=== PATIENT | male | born 1995 | race Hispanic/Latino ===

== ENCOUNTER 2017-11-25 19:03 | Emergency (ER) | payer BC ==
[2017-11-25] MEDS ORDERED: ASPIRIN 81 MG CHEWABLE TABLET ONE (20:03)
[2017-11-25 20:13] LABS: Absolute Lymphocytes (CBC) 2.2 K/uL (0.7-4.9); Absolute Monocytes 0.7 K/uL (0.1-1.3); Absolute Neutrophil 5.2 K/uL (1.8-8.0); Basophils % 0.8 % (0-1.3); Eosinophils % 2.3 % (0-4.4); Hematocrit 43.2 % (39.6-49.0); Lymphocytes % 26.4 % (15.3-44.8); MCV 87.7 fL (80-100); MPV 7.4 fL (7.6-11.3); Monocytes % 8.9 % (3.3-12.3); RBC Red Blood Cell Count 4.93 M/uL (4.33-5.43)
--- NOTE | 2017-11-25 20:48 | RAD REPORT ---
EXAM DESCRIPTION: RAD - Chest Pa And Lat (2 Views) - 11/25/2017 8:28 pm CLINICAL HISTORY: CHEST PAIN Chest pain. COMPARISON: No comparisons FINDINGS: The lungs are clear. The heart is normal in size. No displaced fractures. IMPRESSION: No acute or concerning finding suspected.
[2017-11-25 21:04] LABS: ALT/SGPT 48 U/L (12-78); AST/SGOT 37 U/L (15-37); Albumin 4.2 g/dL (3.4-5.0); Alkaline Phosphatase 117 U/L (45-117); BUN Blood Urea Nitrogen 17 mg/dL (7-18); Bicarbonate 27 mmol/L (21-32); Bilirubin Total 0.5 mg/dL (0.2-1.0); Glucose Level 102 mg/dL (74-106); Potassium 3.7 mmol/L (3.5-5.1); Protein, Total 7.7 g/dL (6.4-8.2); Sodium Level 140 mmol/L (136-145); Troponin (Emerg Dept Use Only) < 0.02 ng/mL (0.0-0.045)
--- NOTE | 2017-11-25 21:04 | EDPHYS ---
Physician Documentation [facility] Name: Marko Quintero Age: 21 yrs Sex: Male : 1995 Arrival Date: 11/25/2017 Time: 19:07 Bed 23 Private MD: ED Physician Tony Cordoba HPI: 11/25 19:48 This 21 yrs old Male presents to ER via Ambulatory with complaints of Chest jb Pain, Rash. 19:48 The patient or guardian reports chest pain that is located primarily in the anterior jb chest wall, bilaterally. The pain does not radiate. Associated signs and symptoms: The patient has no apparent associated signs or symptoms. The chest pain is described as aching. Severity of pain: At its worst the pain was mild in the emergency department the pain is unchanged. The patient has not experienced similar symptoms in the past. Historical: - Allergies: 19:12 Peanut; aj - Home Meds: 19:12 None [Active]; aj - PMHx: 19:12 None; aj - PSHx: 19:12 None; aj - Immunization history:: Adult Immunizations up to date. - Social history:: Smoking status: Patient/guardian denies using tobacco. - Ebola Screening: : Patient negative for fever greater than or equal to 101.5 degrees Fahrenheit, and additional compatible Ebola Virus Disease symptoms Patient denies exposure to infectious person Patient denies travel to an Ebola-affected area in the 21 days before illness onset No symptoms or risks identified at this time. - Family history:: not pertinent. ROS: 19:48 Constitutional: Negative for fever, chills, and weight loss, Eyes: Negative for injury, jb pain, redness, and discharge, ENT: Negative for injury, pain, and discharge, Neck: Negative for injury, pain, and swelling, Respiratory: Negative for shortness of breath, cough, wheezing, and pleuritic chest pain, Abdomen/GI: Negative for abdominal pain, nausea, vomiting, diarrhea, and constipation, Back: Negative for injury and pain, : Negative for injury, bleeding, discharge, and swelling, MS/Extremity: Negative for injury and deformity, Skin: Negative for injury, rash, and discoloration, Neuro: Negative for headache, weakness, numbness, tingling, and seizure, Psych: Negative for depression, anxiety, suicide ideation, homicidal ideation, and hallucinations, Allergy/Immunology: Negative for hives, rash, and allergies, Endocrine: Negative for neck swelling, polydipsia, polyuria, polyphagia, and marked weight changes, Hematologic/Lymphatic: Negative for swollen nodes, abnormal bleeding, and unusual bruising. 19:48 Cardiovascular: Positive for chest pain. Exam: 19:48 Constitutional: This is a well developed, well nourished patient who is awake, alert, jb and in no acute distress. Head/Face: Normocephalic, atraumatic. Eyes: Pupils equal round and reactive to light, extra-ocular motions intact. Lids and lashes normal. Conjunctiva and sclera are non-icteric and not injected. Cornea within normal limits. Periorbital areas with no swelling, redness, or edema. ENT: Nares patent. No nasal discharge, no septal abnormalities noted. Tympanic membranes are normal and external auditory canals are clear. Oropharynx with no redness, swelling, or masses, exudates, or evidence of obstruction, uvula midline. Mucous membranes moist. Neck: Trachea midline, no thyromegaly or masses palpated, and no cervical lymphadenopathy. Supple, full range of motion without nuchal rigidity, or vertebral point tenderness. No Meningismus. Chest/axilla: Normal chest wall appearance and motion. Nontender with no deformity. No lesions are appreciated. Cardiovascular: Regular rate and rhythm with a normal S1 and S2. No gallops, murmurs, or rubs. Normal PMI, no JVD. No pulse deficits. Respiratory: Lungs have equal breath sounds bilaterally, clear to auscultation and percussion. No rales, rhonchi or wheezes noted. No increased work of breathing, no retractions or nasal flaring. Abdomen/GI: Soft, non-tender, with normal bowel sounds. No distension or tympany. No guarding or rebound. No evidence of tenderness throughout. Back: No spinal tenderness. No costovertebral tenderness. Full range of motion. Male : Normal genitalia with no discharge or lesions. Skin: Warm, dry with normal turgor. Normal color with no rashes, no lesions, and no evidence of cellulitis. MS/ Extremity: Pulses equal, no cyanosis. Neurovascular intact. Full, normal range of motion. Neuro: Awake and alert, GCS 15, oriented to person, place, time, and situation. Cranial nerves II-XII grossly intact. Motor strength 5/5 in all extremities. Sensory grossly intact. Cerebellar exam normal. Normal gait. Psych: Awake, alert, with orientation to person, place and time. Behavior, mood, and affect are within normal limits. Vital Signs: 19:11 BP 131 / 85; Pulse 91; Resp 17; Temp 97.6; Pulse Ox 98% on R/A; Weight 113.4 kg; Height aj 6 ft. 0 in. (182.88 cm); 20:02 BP 112 / 80; Pulse 87; Resp 18; Pulse Ox 96% ; Pain 4/10; fc 21:00 BP 117 / 79; Pulse 80; Resp 20; Temp 98.0(O); Pulse Ox 96% on R/A; Pain 2/10; fc 21:33 BP 114 / 75; Pulse 80; Resp 20; Temp 98.0(O); Pulse Ox 96% on R/A; Pain 02/10; fc 19:11 Body Mass Index 33.91 (113.40 kg, 182.88 cm) MDM: 19:20 Patient medically screened. [facility] 19:50 Data reviewed: vital signs, nurses notes, lab test result(s), EKG, radiologic studies, [facility] plain films. 11/25 19:48 Order name: CBC with Diff [facility] 11/25 19:48 Order name: Comprehensive Metabolic Panel; Complete Time: 21:05 [facility] 11/25 19:48 Order name: Chest Pa And Lat (2 Views) XRAY; Complete Time: 21:00 [facility] 11/25 19:48 Order name: D-Dimer; Complete Time: 21:00 [facility] 11/25 19:48 Order name: Troponin (emerg Dept Use Only); Complete Time: 21:05 [facility] 11/25 19:49 Order name: CBC with Automated Diff; Complete Time: 21:00 EDMS 11/25 19:48 Order name: EKG; Complete Time: 19:49 [facility] 11/25 19:48 Order name: EKG - Nurse/Tech; Complete Time: 19:55 [facility] Administered Medications: 19:58 Drug: Aspirin 81 mg Route: PO; 21:34 Follow up: Response: No adverse reaction; No change in condition Disposition: 11/25/17 21:03 Discharged to Home. Impression: Chest pain, unspecified. - Condition is Stable. - Discharge Instructions: Nonspecific Chest Pain, Chest Wall Pain, Chest Wall Pain, [id number], Nonspecific Chest Pain, [id number], Aspirin and Your Heart. - Medication Reconciliation Form, Thank You Letter, Antibiotic Education, Prescription Opioid Use form. - Follow up: Private Physician; When: 2 - 3 days; Reason: Recheck today's complaints, Continuance of care, Re-evaluation by your physician. Follow up: Twan Waldrop; When: 2 - 3 days; Reason: Recheck today's complaints, Re-evaluation by your physician. - Problem is new. - Symptoms have improved. Signatures: Dispatcher [employer] EDPatsy Mijares RN RN Tony Vargas MD MD cha Chretien, Felicia, RN RN fc Corrections: (The following items were deleted from the chart) 21:53 21:03 11/25/2017 21:03 Discharged to Home. Impression: Chest pain, unspecified. fc Condition is Stable. Discharge Instructions: Nonspecific Chest Pain, Chest Wall Pain, Chest Wall Pain, [id number], Nonspecific Chest Pain, [id number]-[id number], Aspirin and Your Heart. Forms are Medication Reconciliation Form, Thank You Letter, Antibiotic Education, Prescription Opioid Use. Follow up: Private Physician; When: 2 - 3 days; Reason: Recheck today's complaints, Continuance of care, Re-evaluation by your physician. Follow up: Twan Waldrop; When: 2 - 3 days; Reason: Recheck today's complaints, Re-evaluation by your physician. Problem is new. Symptoms have improved. jb
--- NOTE | 2017-11-25 21:04 | ER ---
Nurse's Notes [facility] Name: Marko Quintero Age: 21 yrs Sex: Male : 1995 Arrival Date: 11/25/2017 Time: 19:07 Bed 23 Private MD: Diagnosis: Chest pain, unspecified Presentation: 11/25 19:11 Presenting complaint: Patient states: Pain in sternum that is worse with heavy lifting. aj Transition of care: patient was not received from another setting of care. Onset of symptoms was November 25, 2017. Risk Assessment: Do you want to hurt yourself or someone else? Patient reports no desire to harm self or others. Initial Sepsis Screen: Does the patient meet any 2 criteria? No. Patient's initial sepsis screen is negative. Does the patient have a suspected source of infection? No. Patient's initial sepsis screen is negative. Care prior to arrival: None. 19:11 Method Of Arrival: Ambulatory aj 19:11 Acuity: DEVORA 3 aj Triage Assessment: 19:12 General: Appears in no apparent distress. comfortable, Behavior is calm, cooperative, aj appropriate for age. Pain: Complains of pain in mid-sternal area. Neuro: Level of Consciousness is awake, alert, obeys commands, Oriented to person, place, time, situation, Appropriate for age. Cardiovascular: Reports chest pain, Capillary refill < 3 seconds. Respiratory: Airway is patent Respiratory effort is even, unlabored, Respiratory pattern is regular, symmetrical. Derm: Skin is intact, is healthy with good turgor, Skin is pink, warm \T\ dry. normal. Musculoskeletal: Reports pain in mid-sternal area. Historical: - Allergies: 19:12 Peanut; aj - Home Meds: 19:12 None [Active]; aj - PMHx: 19:12 None; aj - PSHx: 19:12 None; aj - Immunization history:: Adult Immunizations up to date. - Social history:: Smoking status: Patient/guardian denies using tobacco. - Ebola Screening: : Patient negative for fever greater than or equal to 101.5 degrees Fahrenheit, and additional compatible Ebola Virus Disease symptoms Patient denies exposure to infectious person Patient denies travel to an Ebola-affected area in the 21 days before illness onset No symptoms or risks identified at this time. - Family history:: not pertinent. Screenin:15 Abuse screen: Denies threats or abuse. Nutritional screening: No deficits noted. fc Tuberculosis screening: No symptoms or risk factors identified. Fall Risk None identified. Assessment: 19:15 General: Appears uncomfortable, well groomed, Behavior is calm, cooperative, fc appropriate for age. Pain: Complains of pain in chest and mid-sternal area Pain does not radiate. Quality of pain is described as aching, Pain began this am Is continuous, Aggravated by increased activity, repositioning, and deep breathing. Neuro: Level of Consciousness is awake, alert, obeys commands, Oriented to person, place, time, situation, Appropriate for age. Cardiovascular: Reports chest pain, shortness of breath, Heart tones S1 S2 present Capillary refill < 3 seconds Pulses are all present. Rhythm is regular Chest pain is described as vague, quality is aching is located in chest wall began this am episodes are continuous is aggravated by activity, breathing. Respiratory: Reports shortness of breath on exertion Airway is patent Trachea midline Respiratory effort is even, unlabored, Respiratory pattern is regular, symmetrical, Breath sounds are clear bilaterally. Onset: The symptoms/episode began/occurred this morning, the patient has mild shortness of breath. GI: Abdomen is non-distended, Bowel sounds present X 4 quads. Abd is soft and non tender X 4 quads. Patient currently denies nausea, vomiting. : No deficits noted. EENT: No deficits noted. Derm: Skin is pink, warm \T\ dry. Musculoskeletal: Circulation, motion, and sensation intact. Capillary refill < 3 seconds, Range of motion: intact in all extremities. 19:41 Reassessment: Dr Cordoba in to see and examine pt. fc 20:23 Reassessment: No changes from previously documented assessment. Patient and/or family fc updated on plan of care and expected duration. Pain level reassessed. Patient is alert, oriented x 3, equal unlabored respirations, skin warm/dry/pink. 21:15 Reassessment: No changes from previously documented assessment. Patient and/or family fc updated on plan of care and expected duration. Pain level reassessed. Patient is alert, oriented x 3, equal unlabored respirations, skin warm/dry/pink. Pt pending discharge. 21:47 Reassessment: No changes from previously documented assessment. Patient and/or family fc updated on plan of care and expected duration. Pain level reassessed. Patient is alert, oriented x 3, equal unlabored respirations, skin warm/dry/pink. Dr Cordoba in to see pt's rash (acne) to chest. Vital Signs: 19:11 BP 131 / 85; Pulse 91; Resp 17; Temp 97.6; Pulse Ox 98% on R/A; Weight 113.4 kg; Height aj 6 ft. 0 in. (182.88 cm); 20:02 BP 112 / 80; Pulse 87; Resp 18; Pulse Ox 96% ; Pain 4/10; fc 21:00 BP 117 / 79; Pulse 80; Resp 20; Temp 98.0(O); Pulse Ox 96% on R/A; Pain 2/10; fc 21:33 BP 114 / 75; Pulse 80; Resp 20; Temp 98.0(O); Pulse Ox 96% on R/A; Pain 02/10; fc 19:11 Body Mass Index 33.91 (113.40 kg, 182.88 cm) ED Course: 19:07 Patient arrived in ED. mr 19:11 Arm band placed on right wrist. Patient placed in an exam room. aj 19:12 Triage completed. aj 19:15 Patient has correct armband on for positive identification. Placed in gown. Bed in low fc position. Call light in reach. 19:15 molder labels on. Pulse ox on. NIBP on. fc 19:15 No provider procedures requiring assistance completed. Patient maintains SpO2 fc saturation greater than 95% on room air. 19:20 Tony Cordoba MD is Attending Physician. jb 19:41 EKG done, by ED staff, reviewed by Tony Cordoba MD. fc 19:45 Initial lab(s) drawn, by me, sent to lab. Inserted saline lock: 20 gauge in right fc antecubital area, using aseptic technique. Blood collected. 20:23 X-ray(s) taken. fc 20:26 Chest Pa And Lat (2 Views) XRAY In Process Unspecified. EDMS 20:32 Lab(s) recollected, by me, sent to lab. fc 21:03 Twan Waldrop MD is Referral Physician. jb 21:48 IV discontinued, intact, bleeding controlled, No redness/swelling at site. Pressure fc dressing applied. Administered Medications: 19:58 Drug: Aspirin 81 mg Route: PO; fc 21:34 Follow up: Response: No adverse reaction; No change in condition fc Outcome: 21:03 Discharge ordered by . jb 21:48 Discharged to home ambulatory, with significant other. fc 21:48 Condition: good 21:48 Discharge instructions given to patient, significant other, Instructed on discharge instructions, follow up and referral plans. Demonstrated understanding of instructions, follow-up care, Prescriptions given X none 21:53 Patient left the ED. fc Signatures: Dispatcher [employer] EDPatsy Mijares RN RN aj Anderson, Corey, MD MD cha Rivera, Mary mr Chretien, Felicia, RN RN fc Corrections: (The following items were deleted from the chart) 19:13 19:11 Acuity: DEVORA 4 aj james 21:33 21:33 BP 117 / 79; Pulse 80bpm; Resp 20bpm; Pulse Ox 96% RA; Temp 98.0F Oral; Pain fc 210; fc
--- NOTE | 2017-11-27 07:54 | EKG ---
Test Date: 2017-11-25 Test Time: 19:37:29 Log Skidder: MARIFER MEASUREMENT RESULTS: Intervals: Rate: 95 ID: [id number] QRSD: 90 QT: 346 QTc: 434 [place]: P: 15 ID: [id number] QRS: 28 T: 13 INTERPRETIVE STATEMENTS: Normal sinus rhythm Possible Inferior infarct, age undetermined Abnormal ECG No previous ECG available for comparison Electronically Signed On 11-27-17 07:49:17 CDT by Twan Waldrop
== END 2017-11-25 21:53 | disposition home or self-care (01) ==
LOC: ER 19:03
DX: R07.9 Chest pain, unspecified (principal); Z91.010 Allergy to peanuts
CPT/HCPCS: 36415; 71046; 80053; 84484; 85025; 85379; 93005; 99285

== ENCOUNTER 2018-01-04 07:49 | Emergency (ER) | payer BC ==
[2018-01-04] MEDS ORDERED: IBUPROFEN 400 MG TAB ONE (08:28)
--- NOTE | 2018-01-04 08:55 | EDPHYS ---
Physician Documentation [facility] Name: Marko Quintero Age: 22 yrs Sex: Male : 1995 Arrival Date: 01/04/2018 Time: 07:51 Bed 19 Private MD: ED Physician Paul Chapa HPI: 01/04 08:13 This 22 yrs old Male presents to ER via Ambulatory with complaints of Flu ps1 Symptoms. 08:13 patient has fever, chills, sweats, body aches, headache for 2 days. Sent home from ps1 work. Here for evaluation for same. No flu shot this year. Not immunocompromised and otherwise healthy. . Historical: - Allergies: 08:07 Peanut; ss - Home Meds: 08:07 None [Active]; ss - PMHx: 08:07 None; ss - PSHx: 08:07 None; ss - Immunization history:: Adult Immunizations up to date. - Social history:: Smoking status: Patient/guardian denies using tobacco. - Ebola Screening: : Patient denies exposure to infectious person Patient denies travel to an Ebola-affected area in the 21 days before illness onset. ROS: 08:13 Cardiovascular: Negative for chest pain, palpitations, and edema, Respiratory: Negative ps1 for shortness of breath, cough, wheezing, and pleuritic chest pain, Abdomen/GI: Negative for abdominal pain, nausea, vomiting, diarrhea, and constipation, Back: Negative for injury and pain, MS/Extremity: Negative for injury and deformity, Skin: Negative for injury, rash, and discoloration, Neuro: Negative for headache, weakness, numbness, tingling, and seizure. 08:13 Constitutional: Positive for body aches, chills, fatigue, fever. Exam: 08:13 Constitutional: This is a well developed, well nourished patient who is awake, alert, ps1 and in no acute distress. Head/Face: Normocephalic, atraumatic. Eyes: Pupils equal round and reactive to light, extra-ocular motions intact. Lids and lashes normal. Conjunctiva and sclera are non-icteric and not injected. Chest/axilla: Normal chest wall appearance and motion. Nontender with no deformity. No lesions are appreciated. Respiratory: Lungs have equal breath sounds bilaterally, clear to auscultation and percussion. No rales, rhonchi or wheezes noted. No increased work of breathing, no retractions or nasal flaring. Abdomen/GI: Soft, non-tender, with normal bowel sounds. No distension or tympany. No guarding or rebound. No evidence of tenderness throughout. Skin: Warm, dry with normal turgor. Normal color with no rashes, no lesions, and no evidence of cellulitis. MS/ Extremity: Pulses equal, no cyanosis. Neurovascular intact. Full, normal range of motion. Neuro: Awake and alert, GCS 15, oriented to person, place, time, and situation. Cranial nerves II-XII grossly intact. Sensory grossly intact. 08:13 Cardiovascular: Rate: tachycardic, Rhythm: regular, Pulses: no pulse deficits are appreciated. Vital Signs: 08:04 Pulse 117; Resp 18; Temp 99.8(O); Pulse Ox 97% on R/A; Weight 113.4 kg; Height 6 ft. 0 ss in. (182.88 cm); Pain 5/10; 08:10 BP 139 / 95; ss 08:32 Pulse 103; Resp 16; Pulse Ox 98% on R/A; ss 08:54 Pulse 93; Resp 16 S; Temp 99.5(O); Pulse Ox 98% on R/A; ss 08:54 BP 116 / 76; ss 08:04 Body Mass Index 33.91 (113.40 kg, 182.88 cm) ss MDM: 08:06 Patient medically screened. ps1 17:05 Data reviewed: vital signs, nurses notes, and as a result, I will discharge patient. ps1 01/04 08:04 Order name: Flu; Complete Time: 08:53 ps1 01/04 08:04 Order name: Strep; Complete Time: 08:53 ps1 01/04 08:44 Order name: Throat Culture EDMS Administered Medications: 08:23 Drug: Motrin 800 mg Route: PO; ss 09:06 Follow up: Response: No adverse reaction; Temperature is decreased ss Disposition: 01/04/18 08:54 Discharged to Home. Impression: Viral Illness. - Condition is Stable. - Discharge Instructions: Viral Respiratory Infection, [id number]. - Prescriptions for Anaprox DS 550 mg Oral Tablet - take 1 tablet by ORAL route every 12 hours As needed; 20 tablet. Zofran 4 mg Oral Tablet - take 1 tablet by ORAL route every 12 hours As needed; 20 tablet. - Work release form, Medication Reconciliation Form, Thank You Letter, Antibiotic Education, Prescription Opioid Use form. - Follow up: Private Physician; When: As needed; Reason: Recheck today's complaints, Continuance of care, Re-evaluation by your physician. Follow up: Emergency Department; When: As needed; Reason: Trouble breathing, Worsening of condition. - Problem is new. - Symptoms have improved. Signatures: Dispatcher [employer] [facility] Marija Ramirez RN RN ss Paul Chapa MD MD ps1 Corrections: (The following items were deleted from the chart) 09:07 08:54 01/04/2018 08:54 Discharged to Home. Impression: Viral Illness. Condition is ss Stable. Forms are Medication Reconciliation Form, Thank You Letter, Antibiotic Education, Prescription Opioid Use. Follow up: Private Physician; When: As needed; Reason: Recheck today's complaints, Continuance of care, Re-evaluation by your physician. Follow up: Emergency Department; When: As needed; Reason: Trouble breathing, Worsening of condition. Problem is new. Symptoms have improved. ps1
--- NOTE | 2018-01-04 08:55 | ER ---
Nurse's Notes [facility] Name: Marko Quintero Age: 22 yrs Sex: Male : 1995 Arrival Date: 01/04/2018 Time: 07:51 Bed 19 Private MD: Diagnosis: Viral Illness Presentation: 01/04 08:05 Presenting complaint: Patient states: body aches, chills, dry cough and headaches that ss began 2 days ago. Transition of care: patient was not received from another setting of care. Onset of symptoms was January 02, 2018. Risk Assessment: Do you want to hurt yourself or someone else? Patient reports no desire to harm self or others. Initial Sepsis Screen: Does the patient meet any 2 criteria? HR > 90 bpm. Does the patient have a suspected source of infection? No. Patient's initial sepsis screen is negative. Care prior to arrival: Pt reports he self administered DayQuil at 0230 this AM. 08:05 Method Of Arrival: Ambulatory ss 08:05 Acuity: DEVORA 4 ss Historical: - Allergies: 08:07 Peanut; ss - Home Meds: 08:07 None [Active]; ss - PMHx: 08:07 None; ss - PSHx: 08:07 None; ss - Immunization history:: Adult Immunizations up to date. - Social history:: Smoking status: Patient/guardian denies using tobacco. - Ebola Screening: : Patient denies exposure to infectious person Patient denies travel to an Ebola-affected area in the 21 days before illness onset. Screenin:07 Abuse screen: Denies threats or abuse. Denies injuries from another. Nutritional ss screening: No deficits noted. Tuberculosis screening: Never had TB. Fall Risk None identified. Assessment: 08:04 General: Appears uncomfortable, ill, Behavior is calm, cooperative, Reports chills for ss 1-2 days, fever for 1-2 days, feeling ill for 1-2 days, fatigue for 1-2 days. Pain: Complains of pain in general body aches Pain currently is 5 out of 10 on a pain scale. Pain began 2 days ago Is continuous. Neuro: Level of Consciousness is awake, alert, obeys commands. Cardiovascular: Capillary refill < 3 seconds is brisk in bilateral fingers. Respiratory: Reports cough that is non-productive, dry, since 2 days ago Respiratory effort is even, unlabored, Respiratory pattern is regular, symmetrical, Breath sounds are clear bilaterally. GI: Patient currently denies abdominal pain, diarrhea, nausea, vomiting. : No signs and/or symptoms were reported regarding the genitourinary system. EENT: Nares are clear. EENT: Oral mucosa is moist. Throat is clear. Derm: Skin is intact, is healthy with good turgor, Skin is dry, Skin is pink, warm \T\ dry. normal. Musculoskeletal: Circulation, motion, and sensation intact. Range of motion: intact in all extremities, Swelling absent. Vital Signs: 08:04 Pulse 117; Resp 18; Temp 99.8(O); Pulse Ox 97% on R/A; Weight 113.4 kg; Height 6 ft. 0 ss in. (182.88 cm); Pain 5/10; 08:10 BP 139 / 95; ss 08:32 Pulse 103; Resp 16; Pulse Ox 98% on R/A; ss 08:54 Pulse 93; Resp 16 S; Temp 99.5(O); Pulse Ox 98% on R/A; ss 08:54 BP 116 / 76; ss 08:04 Body Mass Index 33.91 (113.40 kg, 182.88 cm) ED Course: 07:51 Patient arrived in ED. sb2 08:03 Paul Chapa MD is Attending Physician. ps1 08:04 Marija Ramirez, RN is Primary Nurse. ss 08:04 Arm band placed on right wrist. ss 08:06 Triage completed. ss 08:07 Patient has correct armband on for positive identification. Bed in low position. Call light in reach. 08:18 Strep Sent. ss 08:18 Flu Sent. ss 09:06 No provider procedures requiring assistance completed. Patient did not have IV access ss during this emergency room visit. Administered Medications: 08:23 Drug: Motrin 800 mg Route: PO; ss 09:06 Follow up: Response: No adverse reaction; Temperature is decreased Outcome: 08:54 Discharge ordered by . ps1 09:06 Discharged to home ambulatory. ss 09:06 Condition: good 09:06 Discharge instructions given to patient, Instructed on discharge instructions, follow up and referral plans. medication usage, Demonstrated understanding of instructions, follow-up care, medications, Prescriptions given X 2. 09:07 Patient left the ED. ss Signatures: Marija Ramirez, JACOB RN ss Paul Chapa MD MD ps1 Rachelle Gil sb2
== END 2018-01-04 09:07 | disposition home or self-care (01) ==
LOC: ER 07:49
DX: B34.9 Viral infection, unspecified (principal)
CPT/HCPCS: 87070; 87081; 87804; 99283